=== PATIENT | female | born 1985 | race African-American/Black ===

== ENCOUNTER 2024-09-26 00:08 | Inpatient (IN) ==
[2024-09-26 00:47] LABS: ABS Basophils 0.1 10^3/uL (0.0-0.1); ABS Eosinophils 0.1 10^3/uL (0.0-0.5); ABS Lymphocytes 2.1 10^3/uL (1.0-4.8); ABS Monocytes 0.5 10^3/uL (0.0-0.9); ABS Neutrophils 5.3 10^3/uL (1.5-7.6); Eosinophil % 1.2 %; Hematocrit 38.1 % (35-45); Hemoglobin 12.9 g/dL (11.5-14.3); Mean Corpuscular Hemoglobin 33.5 pg (27-33); Mean Corpuscular Hgb Conc 33.9 g/dL (31-36); Mean Corpuscular Volume 98.8 fL (80-97); Mean Platelet Volume 8.7 fL (7.5-11.2); Nucleated Red Blood Cells % 0.1 %/100WBC (0.0-0.8); Platelet Count 421 10^3/uL (150-450); Red Blood Count 3.85 10^6/uL (3.63-4.92); Red Cell Distribution Width 12.7 % (12-17); White Blood Count 8.1 10^3/uL (3.8-11.8)
[2024-09-26 01:08] LABS: High Sens Troponin Baseline 15 pg/mL (<15)
[2024-09-26 01:14] LABS: INR 1.35 (0.85-1.14)
[2024-09-26 01:15] LABS: ALT 29 U/L (7-52); AST 23 U/L (13-39); Albumin 4.6 g/dL (3.2-5.2); Albumin/Globulin Ratio 1.9 (1-3); Alkaline Phosphatase 70 U/L (35-149); Anion Gap 9 mmol/L (2-16); Blood Urea Nitrogen 12 mg/dL (6-24); CO2 Carbon Dioxide 25 mmol/L (22-32); Calcium 9.8 mg/dL (8.6-10.3); Chloride 100 mmol/L (101-111); Creatinine, Serum 0.65 mg/dL (0.51-0.95); Globulin 2.4 g/dL (2-4); Glucose 295 mg/dL (70-100); Potassium 4.6 mmol/L (3.5-5.0); Sodium 134 mmol/L (135-145); Total Bilirubin 0.4 mg/dL (0.2-1.0); eGFR CKD-EPI 114.8 (>60)
[2024-09-26 01:22] LABS: CRP High Sensitivity 3.78 mg/L (<2.00); Lipase < 10 U/L (11.0-82.0)
[2024-09-26] MEDS: Ondansetron 4 mg VIAL 2 MG/ML 2 ml VIAL IV ONE (01:40)
[2024-09-26 02:28] LABS: High Sensitivity Troponin 1 Hr 15 pg/mL (<15)
[2024-09-26] MEDS: Iodixanol 320 (CONTRAST) 100 ML SDV IV ONE (03:51)
[2024-09-26] MEDS: Furosemide 40 mg/4 ml IV VIAL IV SLOW PU ONE (06:33)
[2024-09-26] MEDS ORDERED: Dextrose 50% Syringe 50 ml 25 GM/50 ML SYRINGE IV PUSH PRN (07:40)
[2024-09-26] MEDS ORDERED: Ondansetron ODT 4 mg TAB 4 MG TAB PO PRN (08:23)
[2024-09-26] MEDS: Sulfur Hexaflouride MICROSPHR 25 MG VIAL IV PRN (09:40)
[2024-09-26] MEDS: GABAPENTIN 300 MG PO SCH (10:05)
[2024-09-26] MEDS: LIPASE PO SCH (10:05)
[2024-09-26] MEDS: AMYLASE PO SCH (10:05)
[2024-09-26] MEDS: PROTEASE PO SCH (10:05)
[2024-09-26] MEDS: [UNRECOGNIZED DRUG - OTHER] PO SCH (10:05)
[2024-09-26] MEDS ORDERED: Ondansetron 4 mg VIAL 2 MG/ML 2 ml VIAL ONE (10:14)
[2024-09-26] MEDS: Ondansetron 4 mg VIAL 2 MG/ML 2 ml VIAL IV PRN (10:16)
[2024-09-26] MEDS: Morphine 2 MG/ML SYRINGE IV PRN (10:21)
[2024-09-26] MEDS: Insulin GLARGINE 100 un/ml 10 ml VIAL SUBCUT SCH (10:31)
[2024-09-26 12:13] LABS: Hematocrit 35.3 % (35-45); Hemoglobin 12.3 g/dL (11.5-14.3); Mean Corpuscular Hemoglobin 34.3 pg (27-33); Mean Corpuscular Hgb Conc 34.9 g/dL (31-36); Mean Corpuscular Volume 98.3 fL (80-97); Red Cell Distribution Width 12.7 % (12-17); White Blood Count 6.6 10^3/uL (3.8-11.8)
[2024-09-26] MEDS: Venlafaxine XR 75 mg PO SCH (12:25)
[2024-09-26] MEDS: Pancrelipase 5,000 units CAP PO SCH (12:25)
[2024-09-26 12:31] LABS: Calcium 9.7 mg/dL (8.6-10.3); Creatinine, Serum 0.57 mg/dL (0.51-0.95); Magnesium 1.8 mg/dL (1.9-2.7); Potassium 3.9 mmol/L (3.5-5.0); eGFR CKD-EPI 118.5 (>60)
[2024-09-26 12:35] LABS: ABS Eosinophils 0.1 10^3/uL (0.0-0.5); ABS Lymphocytes 2.2 10^3/uL (1.0-4.8); ABS Monocytes 0.5 10^3/uL (0.0-0.9); ABS Neutrophils 3.8 10^3/uL (1.5-7.6); Eosinophil % 1.8 %; Lymphocyte % 33.4 %; Nucleated Red Blood Cells % 0.1 %/100WBC (0.0-0.8); Platelet Count 392 10^3/uL (150-450)
[2024-09-26 12:54] LABS: Ferritin 50.9 ng/mL (11-307)
[2024-09-26 12:59] LABS: Urine Appearance Clear; Urine Bilirubin Negative (Negative); Urine Blood Negative (Negative); Urine Color Colorless; Urine Glucose 3+ (>=300 mg/dL) (Negative); Urine Ketones Negative (Negative); Urine Nitrite Negative (Negative); Urine Protein Negative (Negative); Urine Specific Gravity 1.017 (1.002-1.030); Urine Urobilinogen Negative (Negative)
[2024-09-26] MEDS ORDERED: Enoxaparin 60 MG/0.6 ML SYR SUBCUT SCH (13:00)
[2024-09-26 13:02] LABS: Free T4 1.06 ng/dL (0.61-1.12); TSH Ultra Thyroid Stim Horm 1.47 mcIU/mL (0.34-5.60)
[2024-09-26] MEDS: Furosemide 40 mg/4 ml IV VIAL IV SCH (15:06)
[2024-09-26] MEDS: Enoxaparin 60 MG/0.6 ML SYR SUBCUT SCH (15:07)
[2024-09-26] MEDS: Morphine 10 MG/ML VIAL (1 ml) IV PRN (16:08)
[2024-09-26] MEDS: cefTRIAXone 1 gm/50 mL D5W 1 GM/50 ML BAG IV SCH (18:27)
[2024-09-26] MEDS: Metoclopramide 5 MG/ML VIAL (10 mg) IV SLOW PU ONE (20:07)
[2024-09-26] MEDS: Furosemide 20 mg/2 ml IV VIAL IV SCH (20:10)
[2024-09-26] MEDS ORDERED: CMCS:Minocycline 50 mg CAP (NF) PO SCH (21:00)
[2024-09-27 06:21] LABS: ABS Basophils 0.1 10^3/uL (0.0-0.1); ABS Eosinophils 0.1 10^3/uL (0.0-0.5); ABS Lymphocytes 2.2 10^3/uL (1.0-4.8); ABS Monocytes 0.5 10^3/uL (0.0-0.9); ABS Neutrophils 4.7 10^3/uL (1.5-7.6); Eosinophil % 1.5 %; Hematocrit 37.7 % (35-45); Hemoglobin 12.8 g/dL (11.5-14.3); Lymphocyte % 28.3 %; Mean Corpuscular Hemoglobin 33.2 pg (27-33); Mean Corpuscular Hgb Conc 34.1 g/dL (31-36); Mean Corpuscular Volume 97.4 fL (80-97); Mean Platelet Volume 9.3 fL (7.5-11.2); Platelet Count 404 10^3/uL (150-450); Red Blood Count 3.87 10^6/uL (3.63-4.92); Red Cell Distribution Width 12.7 % (12-17); White Blood Count 7.6 10^3/uL (3.8-11.8)
[2024-09-27 06:43] LABS: Calcium 10.1 mg/dL (8.6-10.3); Creatinine, Serum 0.65 mg/dL (0.51-0.95); Magnesium 1.7 mg/dL (1.9-2.7); Potassium 3.8 mmol/L (3.5-5.0); eGFR CKD-EPI 114.8 (>60)
[2024-09-27] MEDS: Magnesium Sulfate 2 gm BAG 2 GM/50 ML BAG IVPB ONE (08:29)
[2024-09-27] MEDS: Morphine 10 MG/ML VIAL (1 ml) IV PRN (10:45)
[2024-09-27] MEDS: Furosemide 40 mg/4 ml IV VIAL IV ONE (12:34)
[2024-09-27] MEDS: Morphine 2 MG/ML SYRINGE IV PRN ×3 (14:38→23:57)
[2024-09-28 00:11] LABS: Calcium 9.3 mg/dL (8.6-10.3); Creatinine, Serum 0.75 mg/dL (0.51-0.95); Magnesium 1.9 mg/dL (1.9-2.7); Potassium 4.2 mmol/L (3.5-5.0); eGFR CKD-EPI 103.8 (>60)
[2024-09-28] MEDS: Morphine 2 MG/ML SYRINGE IV ONE (00:18)
[2024-09-28] MEDS: Magnesium Sulfate 2 gm BAG 2 GM/50 ML BAG IVPB ONE (01:02)
[2024-09-28 06:34] LABS: Calcium 9.1 mg/dL (8.6-10.3); Creatinine, Serum 0.59 mg/dL (0.51-0.95); Magnesium 2.3 mg/dL (1.9-2.7); Potassium 4.3 mmol/L (3.5-5.0); eGFR CKD-EPI 117.5 (>60)
[2024-09-28 06:46] LABS: ABS Eosinophils 0.1 10^3/uL (0.0-0.5); ABS Lymphocytes 2.2 10^3/uL (1.0-4.8); ABS Monocytes 0.5 10^3/uL (0.0-0.9); ABS Nucleated RBC 0.01 10^3/ul; Eosinophil % 2.1 %; Hematocrit 34.4 % (35-45); Hemoglobin 12.1 g/dL (11.5-14.3); Lymphocyte % 37.4 %; Mean Corpuscular Hemoglobin 34.9 pg (27-33); Mean Corpuscular Hgb Conc 35.3 g/dL (31-36); Mean Corpuscular Volume 98.8 fL (80-97); Mean Platelet Volume 9.1 fL (7.5-11.2); Nucleated Red Blood Cells % 0.1 %/100WBC (0.0-0.8); Platelet Count 362 10^3/uL (150-450); Red Blood Count 3.48 10^6/uL (3.63-4.92); Red Cell Distribution Width 12.5 % (12-17); White Blood Count 5.8 10^3/uL (3.8-11.8)
[2024-09-28] MEDS: Ferric Gluconate IV 250 MG in NS 0.9% 250 ml 200 ML IVPB SCH (09:29)
[2024-09-28] MEDS: Morphine 2 MG/ML SYRINGE IV PRN (11:57)
[2024-09-28] MEDS: Metoclopramide 5 MG/ML VIAL (10 mg) IV PRN (23:18)
[2024-09-29] MEDS: Metoclopramide 5 MG/ML VIAL (10 mg) IV SLOW PU ONE (01:31)
[2024-09-29 07:14] LABS: ABS Eosinophils 0.2 10^3/uL (0.0-0.5); ABS Lymphocytes 2.1 10^3/uL (1.0-4.8); ABS Monocytes 0.5 10^3/uL (0.0-0.9); ABS Neutrophils 3.8 10^3/uL (1.5-7.6); Eosinophil % 2.8 %; Hematocrit 35.1 % (35-45); Hemoglobin 12.1 g/dL (11.5-14.3); Lymphocyte % 31.2 %; Mean Corpuscular Hemoglobin 33.8 pg (27-33); Mean Corpuscular Hgb Conc 34.3 g/dL (31-36); Mean Corpuscular Volume 98.6 fL (80-97); Mean Platelet Volume 9.2 fL (7.5-11.2); Platelet Count 381 10^3/uL (150-450); Red Blood Count 3.56 10^6/uL (3.63-4.92); Red Cell Distribution Width 12.8 % (12-17); White Blood Count 6.7 10^3/uL (3.8-11.8)
[2024-09-29 07:30] LABS: Anion Gap 7 mmol/L (2-16); Blood Urea Nitrogen 13 mg/dL (6-24); CO2 Carbon Dioxide 28 mmol/L (22-32); Calcium 9.5 mg/dL (8.6-10.3); Chloride 99 mmol/L (101-111); Creatinine, Serum 0.64 mg/dL (0.51-0.95); Glucose 245 mg/dL (70-100); Magnesium 1.7 mg/dL (1.9-2.7); Potassium 4.3 mmol/L (3.5-5.0); Sodium 134 mmol/L (135-145); eGFR CKD-EPI 115.2 (>60)
[2024-09-29] MEDS: Morphine ORAL.SOLN 10 mg 2 mg/ml UDC 5 ml (10 mg) PO PRN (09:04)
[2024-09-29] MEDS: Ondansetron 4 mg VIAL 2 MG/ML 2 ml VIAL IV ONE (09:06)
[2024-09-29] MEDS: Magnesium Sulfate 2 gm BAG 2 GM/50 ML BAG IVPB ONE ×2 (09:17→14:27)
[2024-09-29] MEDS: Morphine 2 MG/ML SYRINGE IV PRN ×2 (11:08→15:15)
[2024-09-29 14:36] LABS: Lipase < 10 U/L (11.0-82.0)
[2024-09-29] MEDS: Sucralfate 1 gm SUSP 1 GM/10 ML UDC PO SCH (15:03)
[2024-09-29] MEDS: Metoclopramide 5 MG/ML VIAL (10 mg) IV SCH (15:06)
[2024-09-29 23:20] LABS: Urine Appearance Clear; Urine Bilirubin Negative (Negative); Urine Blood Negative (Negative); Urine Color Yellow; Urine Glucose Negative (Negative); Urine Ketones Negative (Negative); Urine Nitrite Negative (Negative); Urine Protein Negative (Negative); Urine Specific Gravity 1.021 (1.002-1.030); Urine Urobilinogen Negative (Negative); Urine pH 5.5 (5.0-8.0)
[2024-09-30] MEDS: Morphine ER 15 mg TAB ** extended release PO ONE (13:01)
[2024-09-30] MEDS: Acetaminophen IV 1 GM/100ML 1,000 MG/100 ML BAG IV PRN (18:01)
[2024-09-30] MEDS: Morphine ER 15 mg TAB ** extended release PO SCH (23:51)
[2024-10-01] MEDS: Albuterol HFA INHALER 8 gm MDI INH PRN (06:18)
[2024-10-01 10:22] LABS: ABS Eosinophils 0.2 10^3/uL (0.0-0.5); ABS Monocytes 0.5 10^3/uL (0.0-0.9); ABS Neutrophils 3.2 10^3/uL (1.5-7.6); Eosinophil % 4.1 %; Hematocrit 32.4 % (35-45); Hemoglobin 11.2 g/dL (11.5-14.3); Lymphocyte % 33.7 %; Mean Corpuscular Hemoglobin 33.8 pg (27-33); Mean Corpuscular Hgb Conc 34.5 g/dL (31-36); Mean Corpuscular Volume 97.9 fL (80-97); Mean Platelet Volume 9.2 fL (7.5-11.2); Platelet Count 300 10^3/uL (150-450); Red Blood Count 3.31 10^6/uL (3.63-4.92); Red Cell Distribution Width 12.5 % (12-17)
[2024-10-01] MEDS: Magnesium Sulf 4 GM/100 ML IV 4,000 MG/100 ML BAG IVPB ONE (14:06)
[2024-10-01] MEDS: guaiFENesin 100 mg/5 ml LIQ unit dose cup PO PRN (19:51)
[2024-10-02 08:57] LABS: ABS Basophils 0.1 10^3/uL (0.0-0.1); ABS Eosinophils 0.3 10^3/uL (0.0-0.5); ABS Lymphocytes 2.1 10^3/uL (1.0-4.8); ABS Monocytes 0.8 10^3/uL (0.0-0.9); ABS Neutrophils 3.6 10^3/uL (1.5-7.6); Eosinophil % 4.5 %; Hematocrit 36.7 % (35-45); Hemoglobin 12.8 g/dL (11.5-14.3); Mean Corpuscular Hgb Conc 34.8 g/dL (31-36); Mean Corpuscular Volume 97.6 fL (80-97); Mean Platelet Volume 9.1 fL (7.5-11.2); Platelet Count 314 10^3/uL (150-450); Red Blood Count 3.76 10^6/uL (3.63-4.92); Red Cell Distribution Width 12.9 % (12-17); White Blood Count 6.9 10^3/uL (3.8-11.8)
[2024-10-02 09:37] LABS: Calcium 9.3 mg/dL (8.6-10.3); Creatinine, Serum 0.65 mg/dL (0.51-0.95); Magnesium 1.6 mg/dL (1.9-2.7); eGFR CKD-EPI 114.8 (>60)
[2024-10-02] MEDS: Magnesium Sulf 4 GM/100 ML IV 4,000 MG/100 ML BAG IVPB ONE (11:02)
[2024-10-04] MEDS: Morphine 4 MG/ML VIAL (1 ml) IV ONE (16:08)
[2024-10-04] MEDS: Furosemide 40 mg/4 ml IV VIAL IV SLOW PU ONE (17:40)
[2024-10-04 18:01] VITALS: BP 96/77
[2024-10-04 18:23] LABS: High Sensitivity Troponin 1 Hr 13 pg/mL (<15)
[2024-10-04] MEDS ORDERED: DOXYcycline 100 MG in NS 0.9% 250 ml 250 ML IVPB SCH (21:00)
== END 2024-10-04 19:39 | disposition short-term general hospital (02) | DRG 291 ==
LOC: EDHOLD 00:08 → ED 00:08 → SUATTDRO 06:13 → MEDTELE 13:41 → SUATTDRO 09-28 09:53
PROVIDERS: ADMIT Internal Medicine; ATTEND Internal Medicine